=== PATIENT | male | born 1985 | race African-American/Black ===

== ENCOUNTER 2020-07-30 13:06 | Emergency (ER) | payer SELFPAY ==
[2020-07-30] MEDS ORDERED: Pantoprazole 40 MG VIAL ONE (13:31)
[2020-07-30] MEDS ORDERED: Mag-Al Plus 1200 MG/1200 MG/120 MG/30 ML UDCUP ONE (13:31)
[2020-07-30] MEDS ORDERED: Lidocaine Viscous Sol 2% 15 ml UD Cup ONE (13:31)
[2020-07-30 13:32] LABS: #Eosinphils 0.2 10x3/uL (0.0-0.5); #Monocytes 0.7 10x3/uL (0.0-1.1); #Neutrophils 2.8 10x3/uL (1.5-8.4); %Basophils 0.3 % (0.0-2.0); %Eosinophils 3.5 % (0.0-6.0); %Lymphocytes 38.6 % (18.0-47.0); %Monocytes 11.2 % (0.0-10.0); %Neutrophils 46.1 % (40.0-75.0); Hemoglobin 16.2 g/dL (13.5-17.5); Mean Corpuscular HGB CONC 33.8 g/dL (32.0-36.0); Mean Corpuscular Hemoglobin 30.1 pg (27.0-33.0); Mean Platelet Volume 9.4 fl (7.4-10.4); Platelet Count 303 10x3/uL (150-450); RBC Distribution Width 14.5 % (11.5-14.5); Red Blood Cell (RBC) Count 5.38 10x6/uL (4.32-5.72); White Blood Cell (WBC) Count 6.1 10x3/uL (3.5-10.5)
[2020-07-30 13:40] LABS: ALT (SGPT) 25 U/L (8-55); AST (SGOT) 29 U/L (5-34); Albumin 4.7 g/dL (3.5-5.0); Alkaline Phosphatase 71 U/L (40-110); Anion Gap 15 mmol/L (10-20); BUN (Urea Nitrogen) 8 mg/dL (8.9-20.6); Bilirubin, Total 1.3 mg/dL (0.2-1.2); CK (CPK) 139 U/L (30-200); Calc. Creatinine Clearance 0 mL/min (70-130); Carbon Dioxide 23 mmol/L (22-29); Chloride 103 mmol/L (98-107); Glucose 89 mg/dL (70-105); Lipase 12 U/L (8-78); Potassium 3.6 mmol/L (3.5-5.1); Protein, Total 7.7 g/dL (6.0-8.3); Sodium 137 mmol/L (136-145)
[2020-07-30 14:23] LABS: Bilirubin Neg (Negative); Blood, Urine Negative (Negative); Clarity Slightly Cloudy (Clear); Glucose, Urine (Dipstick) Normal (Negative); Ketone, Urine 15 mg/dL (Negative); Leukocyte Negative (Negative); Nitrite Negative (Negative); Protein, Urine (Dipstick) Negative (Neg-Trace); Urobilinogen Normal mg/dL (Less than 2)
[2020-07-30 14:46] LABS: SARS-CoV-2 NAA Rapid Test Not Detected (NotDetected)
== END 2020-07-30 14:58 | disposition home or self-care (01) ==
LOC: CSHERS 13:06
DX: R10.13 Epigastric pain (principal); I86.1 Scrotal varices; F17.210 Nicotine dependence, cigarettes, uncomplicated
CPT/HCPCS: 0240U; 71045; 76870; 80053; 81003; 82550; 83690; 84484; 85025; 93005; 93976; 96374; C9113

== ENCOUNTER 2020-09-04 18:07 | Emergency (ER) | payer SELFPAY ==
[2020-09-04] MEDS ORDERED: Dexamethasone 10 MG/ML VIAL ONE (19:48)
[2020-09-05 12:29] LABS: SARS-CoV-2 PCR by NAA Not Detected (NotDetected)
== END 2020-09-04 21:07 | disposition home or self-care (01) ==
LOC: CSHERS 18:07
DX: B34.9 Viral infection, unspecified (principal); Z20.822 Contact with and (suspected) exposure to COVID-19; F17.210 Nicotine dependence, cigarettes, uncomplicated
CPT/HCPCS: 70491; 71045; 87635; 96365; 96375; J1100; J3490; U0003; U0005

== ENCOUNTER 2021-05-26 14:45 | Emergency (ER) | payer SELFPAY ==
[2021-05-26] MEDS ORDERED: Acetaminophen 500 MG TAB ONE (18:07)
[2021-05-27 20:20] LABS: SARS-CoV-2 PCR by NAA DETECTED (NotDetected)
== END 2021-05-26 17:55 | disposition home or self-care (01) ==
LOC: CSHERS 14:45
DX: U07.1 COVID-19 (principal); F17.210 Nicotine dependence, cigarettes, uncomplicated
CPT/HCPCS: 99284; U0003; U0005